=== PATIENT | female | born 1985 | race Caucasian/White ===

== ENCOUNTER → 2020-02-16 15:52 | Outpatient (BNVA) | payer BC, SELFPAY | PROVIDERS: Family Provider Family Medicine; Visit Provider Obstetrics & Gynecology | DX: Z12.4 Encounter for screening for malignant neoplasm of cervix (principal) | CPT/HCPCS: 88175 ==

== ENCOUNTER → 2021-09-30 12:29 | Outpatient (BNVA) | payer BC, SELFPAY | PROVIDERS: Family Provider Family Medicine; Visit Provider Nurse Practitioner | DX: R19.7 Diarrhea, unspecified (principal); R11.2 Nausea with vomiting, unspecified | CPT/HCPCS: 81000; 85025 ==

== ENCOUNTER → 2021-10-02 08:41 | Outpatient (BNVA) | payer BC, SELFPAY | PROVIDERS: Family Provider Family Medicine; Visit Provider Nurse Practitioner | DX: R19.7 Diarrhea, unspecified (principal) | CPT/HCPCS: 83630; 87506 ==

== ENCOUNTER → 2022-12-25 10:43 | Outpatient (BNVA) | payer OTHER, SELFPAY | PROVIDERS: Family Provider Family Medicine; Visit Provider Nurse Practitioner Family | DX: R39.9 Unspecified symptoms and signs involving the genitourinary system (principal) | CPT/HCPCS: 81000 ==

== ENCOUNTER → 2023-01-11 14:45 | Outpatient (BNVA) | payer OTHER, SELFPAY | PROVIDERS: Family Provider Family Medicine; Visit Provider Family Medicine | DX: D50.9 Iron deficiency anemia, unspecified (principal); N92.0 Excessive and frequent menstruation with regular cycle; Z01.419 Encounter for gynecological examination (general) (routine) without abnormal findings | CPT/HCPCS: 80053; 82728; 83550; 85025; 87624 ==

== ENCOUNTER 2023-01-18 15:25 | Outpatient (CLI) | payer OTHER, SELFPAY ==
--- NOTE | 2023-01-18 16:00 | CTR_ITS ---
PROCEDURE INFORMATION: Exam: CT Abdomen And Pelvis Without Contrast Exam date and time: 01/18/2023 3:53 PM Age: 37 years old Clinical indication: Other: Right flank pain; Prior surgery; Surgery date: 6+ months; Surgery type: Gb, ; Additional info: Right flank pain, hematuria TECHNIQUE: Imaging protocol: Computed tomography of the abdomen and pelvis without contrast. Radiation optimization: All CT scans at this facility use at least one of these dose optimization techniques: automated exposure control; mA and/or kV adjustment per patient size (includes targeted exams where dose is matched to clinical indication); or iterative reconstruction. REPORTING DATA: Count of CT and Cardiac NM exams in prior 12 months: This patient has received 0 known CTs and 0 known cardiac nuclear medicine studies in the 12 months prior to the current study. COMPARISON: US gall bladder [id number] 03/06/2017 9:45 PM RADIATION DOSE METRICS: Total DLP (mGy-cm): 774.1 FINDINGS: Liver: No mass. Gallbladder and bile ducts: Status post cholecystectomy. Pancreas: No ductal dilation. Spleen: No splenomegaly. Adrenal glands: Normal. No mass. Kidneys and ureters: Bilateral nephrolithiasis. No hydronephrosis. Evaluation for distal ureteral stone is limited at the level of the pelvis. Stomach and bowel: No obstruction. No mucosal thickening. Appendix: No evidence of appendicitis. Intraperitoneal space: No free air. No significant fluid collection. Vasculature: No abdominal aortic aneurysm. Lymph nodes: No enlarged lymph nodes. Urinary bladder: Unremarkable as visualized. Reproductive: Large uterine mass measuring 9 x 9.4 cm. Findings may represent a fibroid in can be further evaluated with pelvic ultrasound and MRI. The Bones/joints: Unremarkable. No acute fracture. Soft tissues: Unremarkable. CT/CT kidney stone [id number] IMPRESSION: 1. Bilateral nephrolithiasis. No hydronephrosis. Evaluation for distal ureteral stone is limited at the level of the pelvis. 2. Large uterine mass measuring 9 x 9.4 cm. Findings may represent a fibroid in can be further evaluated with nonemergent pelvic ultrasound and MRI.
== END 2023-01-18 15:26 | disposition home or self-care (01) ==
PROVIDERS: PCP Family Medicine; Visit Provider Family Medicine
DX: R10.9 Unspecified abdominal pain (principal); N20.0 Calculus of kidney; N85.8 Other specified noninflammatory disorders of uterus
CPT/HCPCS: 74176

== ENCOUNTER 2023-01-25 12:36 | Outpatient (CLI) | payer OTHER, SELFPAY ==
--- NOTE | 2023-01-25 13:00 | US_ITS ---
WS: [id number] US transvaginal [id number] HISTORY: menorrhagia COMPARISON: None available. Uterus: 10.4 cm x 8.7 cm x 7.6 cm. Uterus is enlarged and heterogeneous. Endometrium: There is a large central uterine mass obscuring the endometrium. This mass may be arisin g from the endometrium or the myometrium. There is no distinction between the 2. There is mixed echog enicity centrally. No cystic component. The central mass measures approximately 8.6 x 6.1 x 8.0 cm. T here is increased vascularity. Neither ovary is identified. No adnexal masses. No free fluid in the cul-de-sac. IMPRESSION: 1. Large, mildly vascular heterogeneous mass centered in the uterus. No distinguishable endometrium. This mass may be endometrial or myometrial in etiology. Recommend evaluation by SENIOR CONTRACTS MANAGER. Endometrial neop lasm versus fibroid within the differential. 2. Neither ovary identified.
== END 2023-01-25 12:37 | disposition home or self-care (01) ==
PROVIDERS: PCP Family Medicine; Visit Provider Family Medicine
DX: N92.0 Excessive and frequent menstruation with regular cycle (principal); N85.9 Noninflammatory disorder of uterus, unspecified
CPT/HCPCS: 76830

== ENCOUNTER → 2023-10-08 14:12 | Outpatient (BNVA) | payer OTHER, SELFPAY | PROVIDERS: PCP Family Medicine; Visit Provider Family Medicine | DX: R09.89 Other specified symptoms and signs involving the circulatory and respiratory systems (principal); Z13.6 Encounter for screening for cardiovascular disorders | CPT/HCPCS: 80053; 84443; 85025 ==

== ENCOUNTER 2023-12-06 11:08 | Outpatient (CLI) | payer OTHER, SELFPAY ==
[2023-12-06 11:27] VITALS: BMI 48.6
--- NOTE | 2023-12-06 11:28 | ECG_ITS ---
[facility] Test Date: 2023-12-06 Pat Name: Adriana Johnson Department: Room: Gender: Female Pantry Steward/Stewardess: : 1985 Requested By: Stephanie Kirkpatrick Order Number: [id number] Mast MD: Nicole Fajardo M.D. Interpretive Statements NAME OF STUDY: TREADMILL STRESS TEST INDICATION: Labile BP PROCEDURE: At the baseline, the patient's blood pressure was 115/85 with a heart rate of 83. The baseline electrocardiogram showed normal sinus rhythm with some nonspecific T wave changes.. The patient exercised for 9 minutes on a standard Dangelo protocol. Patient attained a maximum heart rate of 177 beats per minute(98% of the maximum predicted heart rate) with a blood pressure at the peak exercise of 160/101 mm Hg. The EKG at the peak exercise revealed nonspecific ST-T changes. Patient did not have any chest pain or any significant cardiac arrhythmias with the exercise During the recovery phase, there were no new changes. Blood pressure at the end of the recovery phase was 128/79 mm Hg with a heart rate of 99 per minute. CONCLUSION: 1. Nonspecific EKG changes with the treadmill exercise 2. No exercise-induced chest pain or cardiac arrhythmia 3. Fair exercise tolerance, attained a maximum of 10.2 METs 4. Hypertensive response to exercise Electronically Signed On 12-12-2023 22:37:15 CDT by Nicole Fajardo M.D. [email or web address]
[2023-12-06 12:06] VITALS: BP 126/64; PULSE 62
[2023-12-06 12:46] LABS: Alanine Aminotransferase 11 U/L (0-33); Albumin Level 4.2 g/dL (3.5-5.2); Alkaline Phosphatase 80 U/L (35-105); Aspartate Amino Transferase 13 U/L (0-32); Blood Urea Nitrogen 8 mg/dL (6-20); Calcium 9.1 mg/dL (8.5-10.5); Carbon Dioxide 19 mmol/L (22-29); Chloride 102 mmol/L (98-107); Chol HDL Ratio 3.23 mg/dL (0.0-4.40); Cholesterol 168 mg/dL (0-200); Creatinine Clr Calc Pharmacy 154.1066; Globulin 3.4 g/dL (1.3-4.6); Glomerular Filtration Rate 110.7 mL/min (90-130); Glucose 99 mg/dL (65-115); HDL Cholesterol 52 mg/dL (60-100); LDL Cholesterol Calculated 91 mg/dL (50-129); LDL HDL Ratio 1.75 RATIO (0.00-3.22); Osmolality Calculated 284 mOsm/kg (285-295); Sodium 138 mmol/L (136-145); Total Bilirubin 0.3 mg/dL (0.15-1.2); Total Protein 7.6 g/dL (6.6-8.7); Triglycerides 127 mg/dL (0-150)
== END 2023-12-06 11:09 | disposition home or self-care (01) ==
LOC: CDL 11:10
PROVIDERS: PCP Family Medicine; Visit Provider Family Medicine
DX: Z00.00 Encounter for general adult medical examination without abnormal findings (principal); R07.89 Other chest pain
CPT/HCPCS: 36415; 80053; 80061; 93017

== ENCOUNTER 2024-12-18 18:27 | Emergency (ER) | payer OTHER, SELFPAY ==
--- OUTSIDE RECORDS SUMMARY | 2024-12-17 10:00 | XMS_ITS | Encounter Summary ---
Author Organization [facility] Address [address] [place] [address] Care Team Providers Care Applications Trainer Name Role Phone Flip Becerra MD Primary Care Provider [phone] Reason for Referral * Radiology Services (Routine) - Open Specialty Diagnoses / Procedures Referred By Ijeoma llamas Referred To Contact Diagnoses Encounter for screening for malignant neoplasm of breast, unspecified screening modality Procedures MAMMO 3D NADEGE SCREEN BILATERAL MOBILE Claire Zaragoza FNP [address] [phone] Phone: tel: fax: [facility] Pre-Registration [place] CALL TO MAKE APPOINTMENT ONLY [address] [place] [address] Phone: tel: fax: Referral ID Status Reason Start Date Expiration Date Visits Re quested Visits Authorized [id number] Open 12/17/2024 01/17/2026 1 1 Reason for Visit * Reason Comments Kidney Stone Encounter Details Date Type Department Care Team (Late st Contact Info) Description 12/17/2024 10:00 AM CDT Telemed [facility] [address] [place] [phone] Claire Zaragoza FNP [address] [place] [address] Kidney stones (Primary Dx); Encounter for screening for malignant neoplasm of breast, unspecified screening modality Social History Tobacco Use Types Packs/Day Years Used Date Smoking Tobacco: Never Smokeless Tobacco: Never Alcohol Use Standard Drinks/Week Comments Never 0 (1 standard drink = 0.6 oz pur e alcohol) Comments No Sex and Gender Information Value Date Recorded Sex Assigned at Female 04/30/2024 11:27 AM REFRIGERATION PLANT OPERATOR Legal Sex Female 3:29 PM CDT Gender Identity Female 04/30/2024 11:27 AM REFRIGERATION PLANT OPERATOR Sexual Orientation Straight 04/30/2024 11 :27 AM REFRIGERATION PLANT OPERATOR documented as of this encounter Last Filed Vital Signs Vital Sign Reading Time Taken Comments Blood Pressure - - Pulse - - Temperature - - Respiratory Rate - - Oxygen Saturation - - Inhaled Oxygen Concentration - - Weight 97.5 kg (215 lb) 12/17/2024 10:15 AM CDT Height 157.5 cm (5' 2 ) 12/17/2024 10:15 AM CDT Body Mass Index 39.32 12/17/2024 10:15 AM CDT documented in this encounter Progress Notes * Claire Zaragoza FNP - 12/17/2024 11:42 AM CDT Patient's identity confirmed yes Patient gave verbal consent to have these services billed to their insurance and expressed understanding that co-insurance and deductible may apply: yes Patient was located at a place other than their home - work. This encounter was completed via two-way synchronous audio only communication. Video technology available to provider, but patient not capable of, or doesn't consent to, use of video. Time spent in discussion with patient: 10 minutes. {TIP For audio-only visits where the provider spent >5 but <10 min on phone with pt, [place] [phone]. HISTORY OF PRESENT ILLNESS bart Cowart 39 y.o. female presents with a Chief Complaint of Kidney Stone Patient complains of right flank pain for several days. Patient has a long standing history of kidney stones and is requesting a prescription for Flomax, as this is generally effective. She denies fevers or difficulty urinating. REVIEW OF SYSTEMS Review of Systems All other systems reviewed and are negative. Objective PHYSICAL EXAM Ht 5' 2 (1.575 m) Wt 97.5 kg (215 lb) LMP 03/28/2023 BMI 39.32 kg/m?? Physical Exam Neurological: General: No focal deficit present. Mental Status: She is alert and oriented to person, place, and time. Psychiatric: Mood and Affect: Mood normal. Behavior: Behavior normal. ASSESSMENT and PLAN: 1. Kidney stones (Primary) Instructed to increase fluid intake. Instructed to seek emergent care with inability to urinate or fever onset. Instructed in person visit with continued or worsening symptoms. - tamsulosin (Flomax) 0.4 mg capsule; Take 1 Capsule (0.4 mg) by mouth daily for 10 days. Dispense:10 Capsule; Refill: 1 - ondansetron (ZOFRAN ODT) 4 mg Tablet, Rapid Dissolve; Take 1 Tablet (4 mg) by mouth every 6 hoursas needed for Nausea/Emesis. Dissolve tablet on top of tongue, then swallow with saliva. Dispense: 15 Tablet; Refill: 0 2. Encounter for screening for malignant neoplasm of breast, unspecified screening modality - MAMMO 3D NADEGE SCREEN BILATERAL MOBILE; Future documented in this encounter Plan of Treatment Scheduled Orders Name Type Priority Associated Diagnoses Orde r Schedule MAMMO 3D NADEGE SCREEN BILATERAL MOBILE Imaging Routine Encounter for screening for malignant neoplasm of breast, unspecified screening modality 1 Occurrences starting 12/17/2024 until 06/19/2026 documented as of this encounter Visit Diagnoses Diagnosis Kidney stones- Primary Calculus of kidney Encounter for screening for malignant neoplasm of breast, unspecified screening modality documented in this encounter Care Teams Applications Trainer Relationship Specialty Start Date End Date Flip Becerra MD [address] [place] [phone] PCP - General Family Practice 12/17/24 documented as of this encounter
--- OUTSIDE RECORDS SUMMARY | 2024-12-18 08:40 | XMS_ITS | Encounter Summary ---
Author Organization [facility] Address [address] [place] [address] Care Team Providers Care Blueprint Duplicator Name Role Phone Flip Becerra MD Primary Care Provider [phone] Reason for Visit * Reason Comments Kidney Stone Symptoms started Meera rsday morning, Progressively worsening Encounter Details Date Type Department Care Team (Late st Contact Info) Description 12/18/2024 8:40 AM CDT Office Visit [facility] [address] [phone] Claire Zaragoza, [facility] [address] [phone] Flank pain (Primary Dx) Social History Tobacco Use Types Packs/Day Years Used Date Smoking Tobacco: Never Smokeless Tobacco: Never Alcohol Use Standard Drinks/Week Comments Never 0 (1 standard drink = 0.6 oz pur e alcohol) Comments No Sex and Gender Information Value Date Recorded Sex Assigned at Female 04/30/2024 11:27 AM BIOCHEMIST Legal Sex Female 3:29 PM CDT Gender Identity Female 04/30/2024 11:27 AM BIOCHEMIST Sexual Orientation Straight 04/30/2024 11 :27 AM BIOCHEMIST documented as of this encounter Last Filed Vital Signs Vital Sign Reading Time Taken Comments Blood Pressure 132/76 12/18/2024 8:56 AM CDT Pulse 128 12/18/2024 8:56 AM CDT Temperature 37.4 C (99.3 F) 12/18/2024 8:56 AM CDT Respiratory Rate 20 12/18/2024 8:56 AM CDT Oxygen Saturation 96% 12/18/2024 8:56 AM CDT Inhaled Oxygen Concentration - - Weight 101.2 kg (223 lb) 12/18/2024 8:56 AM CDT Height 157.5 cm (5' 2 ) 12/18/2024 8:56 AM CDT Body Mass Index 40.79 12/18/2024 8:56 AM CDT documented in this encounter Progress Notes * Mila Claire Miller, INVESTMENT ADVISOR - 12/18/2024 11:21 AM CDT HISTORY OF PRESENT ILLNESS Adriana Johnson, a 39 y.o. female presents with a Chief Complaint of Kidney Stone (Symptoms started Th morning, Progressively worsening) Patient presents to clinic with right sided flank pain since yesterday. She reports she is urinating with some blood. She reports a history of kidney stones and reports similar symptoms. She reports vomiting and a fever of 102 this morning. REVIEW OF SYSTEMS Review of Systems All other systems reviewed and are negative. Objective PHYSICAL EXAM BP 132/76 Pulse (!) 128 Temp 99.3 ??F (37.4 ??C) (Temporal) Resp 20 Ht 5' 2 (1.575 m) Wt101.2 kg (223 lb) LMP 03/28/2023 SpO2 96% BMI 40.79 kg/m?? Physical Exam Constitutional: Appearance: She is ill-appearing and diaphoretic. HENT: Mouth/Throat: Mouth: Mucous membranes are moist. Eyes: Pupils: Pupils are equal, round, and reactive to light. Cardiovascular: Rate and Rhythm: Normal rate and regular rhythm. Pulmonary: Effort: Pulmonary effort is normal. Breath sounds: Normal breath sounds. Abdominal: Tenderness: There is right CVA tenderness. Skin: General: Skin is warm. Capillary Refill: Capillary refill takes less than 2 seconds. Neurological: General: No focal deficit present. Mental Status: She is alert and oriented to person, place, and time. Psychiatric: Mood and Affect: Mood normal. ASSESSMENT and PLAN: 1. Flank pain (Primary) Prescription for pain medication sent via Dr. Glover. Strict ER precautions with new or worsening symptoms. Encouraged increasing fluid intake, Flomax as prescribed. - ketorolac (TORADOL) injection 30 mg - prochlorperazine (COMPAZINE) injection 10 mg - XR ABDOMEN 1 VW; Future documented in this encounter Plan of Treatment Not on file documented as of this encounter Results * XR ABDOMEN 1 VW (12/18/2024 9:24 AM CDT) Anatomical Region Laterality Modality Abdomen Computed Radiogr aphy 12/18/2024 9:25 AM CDT Impressions 12/18/2024 10:23 AM CDT IMPRESSION: 1. The current study is limited by motion. 2. Possible calculus near the right renal pelvis. Narrative 12/18/2024 10:23 AM CDT EXAM: XR ABDOMEN 1 VW DATE/TIME OF EXAM: 12/18/2024 9:24 AM REASON FOR STUDY: See Diagnosis DIAGNOSIS: Flank pain COMPARISON: None FINDINGS: The current study is limited by motion artifact. Sensitivity for calculi is very limited. Possible right renal calculus projecting to the right of the T12 vertebra. Nonspecific focal opacities in the pelvis indeterminate for calcifications. Bowel gas pattern is nonobstructive. Procedure Note Dhiraj Lua MD - 12/18/2024 EXAM: XR ABDOMEN 1 VW DATE/TIME OF EXAM: 12/18/2024 9:24 AM REASON FOR STUDY: See Diagnosis DIAGNOSIS: Flank pain COMPARISON: None FINDINGS: The current study is limited by motion artifact. Sensitivity for calculi is very limited. Possible right renal calculus projecting to the right of the T12 vertebra. Nonspecific focal opacities in the pelvis indeterminate for calcifications. Bowel gas pattern is nonobstructive. IMPRESSION: 1. The current study is limited by motion. 2. Possible calculus near the right renal pelvis. Claire [facility] BLES Final Result documented in this encounter Visit Diagnoses Diagnosis Flank pain- Primary Abdominal pain, unspecified site Flank pain Abdominal pain, unspecified site documented in this encounter Administered Medications Inactive Administered Medications - up to 3 most recent administrations Medication Order MAR Action Action Date Dose Rate Site ketorolac (TORADOL) injection 30 mg 30 mg, IM, ONE TIME ONLY, 1 dose, On Sat12/18/24 at 0915, RoutineIndications:Flank pain Given 12/18/2024 9:35 AM CDT 30 mg Ventrogluteal, Right prochlorperazine (COMPAZINE) injection 10 mg 10 mg, IM, ONE TIME ONLY, 1 dose, On Sat12/18/24 at 0915, RoutineIndications:Flank pain Given 12/18/2024 9:36 AM CDT 10 mg Ventrogluteal, Left documented in this encounter Care Teams Blueprint Duplicator Relationship Specialty Start Date End Date Flip Becerra MD [address] [place] [phone] PCP - General Family Practice 12/17/24 documented as of this encounter
--- OUTSIDE RECORDS SUMMARY | 2024-12-18 09:15 | XMS_ITS | Encounter Summary ---
Author Organization [facility] Address [address] [place] [address] Care Team Providers Care Limehouse Worker Name Role Phone Flip Becerra MD Primary Care Provider [phone] Reason for Visit * Reason Comments X-Ray Only Encounter Details Date Type Department Care Team (Late st Contact Info) Description 12/18/2024 9:15 AM CDT Ancillary Procedure [facility] [address] [place] [phone] [facility] [address] [phone] Flank pain Social History Tobacco Use Types Packs/Day Years Used Date Smoking Tobacco: Never Smokeless Tobacco: Never Alcohol Use Standard Drinks/Week Comments Never 0 (1 standard drink = 0.6 oz pur e alcohol) Comments No Sex and Gender Information Value Date Recorded Sex Assigned at Female 04/30/2024 11:27 AM ENGINE OILER Legal Sex Female 3:29 PM CDT Gender Identity Female 04/30/2024 11:27 AM ENGINE OILER Sexual Orientation Straight 04/30/2024 11 :27 AM ENGINE OILER documented as of this encounter Plan of Treatment Not on file documented as of this encounter Procedures Procedure Name Priority Date/Time Associated Diagnosis Comments XR ABDOMEN 1 VW Routine 12/18/2024 9:24 AM CDT Flank pain documented in this encounter Results * XR ABDOMEN 1 [...] calculus near the right renal pelvis. Claire Zaragoza CONCRETE ROD BUSTER [facility] ORDERA BLES Final Result documented in this encounter Visit Diagnoses Diagnosis Flank pain Abdominal pain, unspecified site documented in this encounter Care Teams Limehouse Worker Relationship Specialty Start Date End Date Flip Becerra MD [address] [place] [phone] PCP - General Family Practice 12/17/24 documented as of this encounter
--- OUTSIDE RECORDS SUMMARY | 2024-12-18 18:33 | XMS_ITS | Clinical Summary ---
Author Organization [facility] Address [address] [phone] Care Team Providers Care Charhouse Worker Name Role Phone Flip Becerra MD Primary Care Provider [phone] Allergies Active Allergy Reactions Criticality Noted Date Comments Sulfa (Sulfonamide Antibiotics) Shortness of Breath/Wheezing High 09/30/2021 Medications cetirizine (ZyrTEC) 10 mg tablet Take 10 mg by mouth. 3 Active nystatin (MYCOSTATIN) 100,000 unit/gram Ointment Apply to affected area 2 times daily. 30 Gram 3 Active Additional Information Patient not taking.Reported on 12/18/2024 tamsulosin (Flomax) 0.4 mg capsuleIndicat ions:Kidney stones Take 1 Capsule (0.4 mg) by mouth daily for 10 days. 10 Capsule 1 5 12/28/19 25 Active ondansetron (ZOFRAN ODT) 4 mg Tablet, Rapid DissolveIndica tions:Kidney stones Take 1 Tablet (4 mg) by mouth every 6 hours as needed for Nausea/Emesis. Dissolve tablet on top of tongue, then swallow with saliva. 15 Tablet 5 Active Additional Information Patient not taking.Reported on 12/18/2024 oxyCODONE-acet aminophen (PERCOCET) 5-325 mg tabletIndicati ons:Kidney stones Take 1 Tablet by mouth every 4 hours as needed for Pain, Moderate. Max Daily Amount: 6 Tablets 15 Tablet Active ondansetron (ZOFRAN ODT) 4 mg Tablet, Rapid Dissolve Take 1 Tablet (4 mg) by mouth every 6 hours as needed for Nausea/Emesis. Dissolve tablet on top of tongue, then swallow with saliva. 15 Tablet 3 12/18/19 25 Discontin ued([facility]) Hospital, Clinic, or Other Facility Administered Medication Ordered Dose Route Frequency Start Date End Date Status ketorolac (TORADOL) injection 30 mgIndications:Flank pain 30 mg IM ONE TIME ONLY 12/18/2024 12/18/2024 Ended prochlorperazine (COMPAZINE) injection 10 mgIndications:Flank pain 10 mg IM ONE TIME ONLY 12/18/2024 12/18/2024 Ended Active Problems Problem Noted Date Diagnosed Date History of 2 sections 05/01/2023 Uterine mass 04/09/2023 Enlarged uterus 03/06/2023 Uterine leiomyoma 03/06/2023 Menorrhagia with irregular cycle 03/06/2023 History of x 2 03/06/2023 Pelvic adhesions 03/06/2023 Encounters Date Type Department Care Team Description 12/18/2024 9:15 AM CDT Ancillary Procedure [address] [phone] Claire Zaragoza FNP Flank pain 12/18/2024 8:40 AM CDT Office Visit [address] [phone] Claire Zaragoza FNP Flank pain (Primary Dx) 12/18/2024 Results Follow-Up [address] [phone] Claire Zaragoza FNP XR ABDOMEN 1 VW 12/18/[address] [phone] Claire Zaragoza FNP Kidney stones (Primary Dx) 12/17/2024 10:00 AM CDT Telemed [address] [phone] Claire Zaragoza, SCREEN PRINTING PASTER Kidney stones (Primary Dx); Encounter for screening for malignant neoplasm of breast, unspecified screening modality from Last 3 Months Social History Tobacco Use Types Packs/Day Years Used Date Smoking Tobacco: Never Smokeless Tobacco: Never Tobacco Cessation:Counseling Given: Not Answered Alcohol Use Standard Drinks/Week Comments Never 0 (1 standard drink = 0.6 oz pur e alcohol) Comments No Sex and Gender Information Value Date Recorded Sex Assigned at Female 04/30/2024 11:27 AM AIRLINE PILOT/FIRST OFFICER Legal Sex Female 3:29 PM CDT Gender Identity Female 04/30/2024 11:27 AM AIRLINE PILOT/FIRST OFFICER Sexual Orientation Straight 04/30/2024 11 :27 AM AIRLINE PILOT/FIRST OFFICER Last Filed Vital Signs Vital Sign Reading [...] Mass Index 40.79 12/18/2024 8:56 AM CDT Plan of Treatment Health Maintenance Due Date Last Done Comments Pre-Diabetes and Diabetes Screening 1983 HPV VACCINES (1 - 3-dose series) 1998 DTAP/TDAP/TD VACCINES (1 - Tdap) 2002 HEPATITIS B VACCINES (1 of 3 - 19+ 3-dose series) 05/27 BREAST CANCER SCREENING 2023 Preventative Visit- Commercial 05/27/2024 INFLUENZA VACCINE (#1) 2024 Procedures Procedure Name Priority Date/Time Associated Diagnosis Comments XR ABDOMEN 1 VW Routine 12/18/2024 9:24 AM CDT Flank pain from Last 3 Months Results * XR ABDOMEN 1 VW (12/18/2024 [...] calculus near the right renal pelvis. Claire [facility] ORDER[facility] BLES Final Result from Last 3 Months Insurance [address] [place] [address] [place] [employer] Advance Directives For more information, please contact: [phone] * Full Code (Latest Code Status on File) Date Activated Date Inactivated Comments 05/01/2023 3:23 PM 05/02/2023 1:24 PM * Full Code Date Activated Date Inactivated Comments 05/01/2023 9:58 AM 05/01/2023 3:23 PM * Full Code Date Activated Date Inactivated Comments 05/01/2023 7:44 AM 05/01/2023 9:57 AM Care Teams Charhouse Worker Relationship Specialty Start Date End Date Flip Becerra MD [address] [place] [phone] PCP - General Family Practice 12/17/24
--- OUTSIDE RECORDS SUMMARY | 2024-12-18 18:33 | XMS_ITS | Encounter Summary ---
Author Organization [facility] Address [address] [place] [address] Care Team Providers Care Middleware Solutions Architect Name Role Phone Flip Becerra MD Primary Care Provider [phone] Reason for Visit * Reason Onset Date Comments Imaging Results 12/18/2024 Encounter Details Date Type Department Care Team (Late st Contact Info) Description 12/18/2024 Results Follow-Up [facility] Medicine [place] [address] [place] [phone] [facility] [address] [phone] XR ABDOMEN 1 VW Social History Tobacco Use Types Packs/Day Years Used Date Smoking Tobacco: Never Smokeless Tobacco: Never Alcohol Use Standard Drinks/Week Comments Never 0 (1 standard drink = 0.6 oz pur e alcohol) Comments No Sex and Gender Information Value Date Recorded Sex Assigned at Female 04/30/2024 11:27 AM NATURAL GAS TECHNICIAN Legal Sex Female 3:29 PM CDT Gender Identity Female 04/30/2024 11:27 AM NATURAL GAS TECHNICIAN Sexual Orientation Straight 04/30/2024 11 :27 AM NATURAL GAS TECHNICIAN documented as of this encounter Miscellaneous Notes * Telephone Encounter - Lynsey Wilson LPN - 12/18/2024 11:08 AM CDT 12/18/2024 11:08 AM Called and notified patient of results. Voiced gisell. Lynsey CANTRELL * Telephone Encounter - Lynsey Wilson LPN - 12/18/2024 11:07 AM CDT ----- Message from Cliare Zaragoza sent at 12/18/2024 11:05 AM CDT ----- IMPRESSION: 1. The current study is limited by motion. 2. Possible calculus near the right renal pelvis. ----- Message ----- From: [facility] Incoming Radiology Results Sent: 12/18/2024 10:23 AM CDT To: DEMETRIUS Starkey * Result Encounter Note - Claire Zaragoza FNP - 12/18/2024 11:05 AM CDT IMPRESSION: 1. The current study is limited by motion. 2. Possible calculus near the right renal pelvis. documented in this encounter Plan of Treatment Not on file documented as of this encounter Visit Diagnoses Not on filedocumented in this encounter Care Teams Middleware Solutions Architect Relationship Specialty Start Date End Date Flip Becerra MD [address] [place] [phone] PCP - General Family Practice 12/17/24 documented as of this encounter
--- OUTSIDE RECORDS SUMMARY | 2024-12-18 18:33 | XMS_ITS | Encounter Summary ---
Author Organization [facility] Address 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 [employer] Name Role Phone Flip Becerra MD Primary Care Provider [phone] Reason for Visit * Reason Onset Date Comments Medication Refill 12/18/2024 Encounter Details Date Type Department Care Team (Late st Contact Info) Description 12/18/2024 Refill [facility] [address] [phone] [facility] [address] [phone] Kidney stones (Primary Dx) Social History Tobacco Use Types Packs/Day Years Used Date Smoking Tobacco: Never Smokeless Tobacco: Never Alcohol Use Standard Drinks/Week Comments Never 0 (1 standard drink = 0.6 oz pur e alcohol) Comments No Sex and Gender Information Value Date Recorded Sex Assigned at Female 04/30/2024 11:27 AM TECHNICAL AID Legal Sex Female 3:29 PM CDT Gender Identity Female 04/30/2024 11:27 AM TECHNICAL AID Sexual Orientation Straight 04/30/2024 11 :27 AM TECHNICAL AID documented as of this encounter Plan of Treatment Not on file documented as of this encounter Visit Diagnoses Diagnosis Kidney stones- Primary Calculus of kidney documented in this encounter Care Teams Farmworker [employer] Relationship Specialty Start Date End Date Flip Becerra MD [address] [place] [phone] PCP - General Family Practice 12/17/24 documented as of this encounter
[2024-12-18 18:56] VITALS: BP 93/56; PULSE 112; RESP 16; TEMP 37.3; O2SAT 98; BMI 38.9
[2024-12-18 19:33] LABS: Hematocrit 42.2 % (36-47); Hemoglobin 13.90 g/dL (11.27-16.99); Mean Corpuscular HGB Conc 32.9 g/dL (30-55); Mean Corpuscular Hemoglobin 30.5 pg (27-33); Mean Corpuscular Volume 92.5 fl (85-98); Nucleated Red Blood Cells % 0 %; Platelet Count 233 10^3/cmm (157-399); Red Blood Count 4.56 10^6/uL (3.85-5.65); White Blood Count 16.88 10^3/uL (3.29-11.43)
[2024-12-18 19:46] LABS: HCG, Serum Qual Negative (Negative)
[2024-12-18 19:56] LABS: Alanine Aminotransferase 10 U/L (0-33); Albumin Level 3.8 g/dL (3.5-5.2); Alkaline Phosphatase 71 U/L (35-105); Anion Gap 18.6 (5-19); Aspartate Amino Transferase 13 U/L (0-32); Blood Urea Nitrogen 12 mg/dL (6-20); Calcium 8.7 mg/dL (8.5-10.5); Carbon Dioxide 22 mmol/L (22-29); Chloride 101 mmol/L (98-107); Creatinine Clr Calc Pharmacy 104.2467; Globulin 3.0 g/dL (1.3-4.6); Glucose 142 mg/dL (65-115); Lipase 14 U/L (13-60); Osmolality Calculated 288 mOsm/kg (285-295); Potassium 3.6 mmol/L (3.5-5.1); Sodium 138 mmol/L (136-145); Total Protein 6.8 g/dL (6.6-8.7)
[2024-12-18 20:01] LABS: Lactic Sepsis W/Reflex 1.5 mmol/L (0.5-2.2)
[2024-12-18 21:17] VITALS: BP 110/74; PULSE 104; RESP 16; O2SAT 96
--- NOTE | 2024-12-18 21:24 | CTR_ITS ---
PROCEDURE INFORMATION: Exam: CT Abdomen And Pelvis Without Contrast Exam date and time: 12/18/2024 9:50 PM Age: 39 years old Clinical indication: Abdominal pain; Prior surgery; Surgery date: 6+ months; Surgery type: Gb. Partial hysterectomy. Csection; C/O left flank pain with fever TECHNIQUE: Imaging protocol: Computed tomography of the abdomen and pelvis without contrast. Radiation optimization: All CT scans at this facility use at least one of these dose optimization techniques: automated exposure control; mA and/or kV adjustment per patient size (includes targeted exams where dose is matched to clinical indication); or iterative reconstruction. COMPARISON: CT kidney stone [id number] 01/18/2023 3:53 PM RADIATION DOSE METRICS: Total DLP (mGy-cm): 1006.1 FINDINGS: Liver: The liver is enlarged, measuring 19.3 cm craniocaudal. Gallbladder and biliary ducts: Status post cholecystectomy. No biliary ductal dilatation. Pancreas: Normal. No ductal dilation. Spleen: Borderline splenomegaly. Adrenal glands: Normal. No mass. Kidneys and ureters: 4 mm nonobstructing calculus in a left lower pole calyx. A few 2-3 mm calculi are seen in the upper pole of the left kidney. Mild left hydroureteronephrosis. Asymmetric left perinephric fat stranding. 5 mm calculus in the distal left ureter at the level of the ureterovesicular junction. Stomach and bowel: Unremarkable. No obstruction. No mucosal thickening. Appendix: No evidence of appendicitis. Intraperitoneal space: Unremarkable. No free air. No significant fluid collection. Vasculature: Unremarkable. No abdominal aortic aneurysm. Lymph nodes: Unremarkable. No enlarged lymph nodes. Urinary bladder: Unremarkable as visualized. Reproductive: Status post hysterectomy. No suspicious adnexal mass. Bones/joints: Mild leftward curvature of the lumbar spine. No acute osseous findings. Soft tissues: Unremarkable. CT/CT kidney stone [id number] IMPRESSION: 5 mm obstructing calculus at the level of the left ureterovesicular junction with mild upstream hydroureteronephrosis. Asymmetric left perinephric fat stranding is likely a result of the obstruction, though underlying infection/inflammation is difficult to exclude.
--- NOTE | 2024-12-18 21:24 | W.ED.BACK ---
HPI - Back Pain/Injury General: Chief Complaint: Back Pain/Injury Stated Complaint: kidney pain Time Seen by Provider: 12/18/24 21:14 History of Present Illness: Healthy 39-year-old female complaining of bilateral flank pain left greater than right, essentially for the last 2 days. She has nausea. She says she has not wanted to eat. Urine has been clear, but just now turned dark. She has felt feverish, and had a temperature up to 101 today. She has a history of kidney stones. She has a history of a hysterectomy. Related Data Home Medications ?Medication ?Instructions ?Recorded ?Confirmed cetirizine 10 mg tablet (Zyrtec) 10 mg PO DAILY PRN 12/25/22 01/02/24 multivitamin (Daily Multi-Vitamin 1 tab PO DAILY 12/25/22 01/02/24 tablet) Previous Rx's ?Medication ?Instructions ?Recorded clonidine HCl 0.1 mg tablet 0.1 mg PO TID PRN BP > 160/90 #30 10/08/23 tabs meloxicam 15 mg tablet See Rx Instructions .Route 12/02/23 .COMPLEX #30 tabs Allergies Allergy/AdvReac Type Severity Reaction Status Date / Time Sulfa (Sulfonamide Allergy ALGY-Difficulty Verified 12/18/24 18:57 Antibiotics) Breathing [facility] ED PFSH: Medical History Establishing care with new doctor, encounter for Uterine mass fibroma Cecilia ACKERMAN No pertinent past medical history Surgical History S/P partial hysterectomy uterine Fibroma, ~03/2023 Cecilia ACKERMAN S/P cholecystectomy Lap H/O section x2 Family History Grandfather Hyperlipidemia maternal Mother Hyperlipidemia Father Hypertension Denies family history of Colon cancer Ovarian cancer Diabetes CAD (coronary artery disease) Clotting disorder Breast cancer Anesthesia complication Bleeding disorder Uterine cancer Thyroid disease Stroke Social History Smoking and tobacco/nicotine status: never used tobacco/nicotine Alcohol intake: current Alcohol intake frequency: holidays/special occasions only Alcohol type: wine and hard liquor Substance/Drug Use: never Lives independently: Yes Household members: spouse Current gender identity: Female Physical Exam Const: COMMON NORMALS: no acute distress GENERAL APPEARANCE: cooperative; not ill appearing and not frail appearing HENMT: COMMON NORMALS: normocephalic, atraumatic and Normal external nose present HEAD & SCALP: normocephalic and atraumatic FACE & SINUS: normal facial exam and face symmetric NOSE: Normal external nose present Eye: COMMON NORMALS: Equal, round and reactive pupils present and EOMs intact bilaterally PUPIL: Yes Equal, round and reactive pupils present Neck/C-Spine: GENERAL: Yes trachea midline Chest: CHEST: Yes Symmetrical chest wall rise Resp: COMMON NORMALS: normal respiratory effort, No retractions, No use of accessory muscles and clear to auscultation bilaterally AUSCULTATION: clear to auscultation bilaterally Cardio: COMMON NORMALS: regular rate and regular rhythm RATE: regular rate RHYTHM: regular rhythm GI: COMMON NORMALS: Normal to inspection, nondistended, normoactive bowel sounds present : BLADDER/KIDNEY EXAM: Yes CVA tenderness bilateral Back/Pelvis: GENERAL BACK: Yes CVA tenderness Extremity: COMMON NORMALS: no pedal edema Neuro: AMADA COMA SCALE: document GCS findings Centre coma scale eye opening: Spontaneous Centre coma scale verbal response: Orientated Amada coma scale motor response: Obey commands Centre coma scale total score: 15 SENSORY EXAM: Yes extremities (intact) Psych: COMMON NORMALS: speech normal SPEECH: Yes normal speech Skin: COMMON NORMALS: no rashes or lesions noted GENERAL SKIN EXAM: no rashes or lesions noted Course Vital Signs: Vital signs: Vital Signs Temperature 99.2 F 12/18/24 18:56 Pulse Rate 116 H 12/19/24 01:11 Respiratory Rate 16 12/19/24 01:11 Blood Pressure 124/84 12/19/24 01:11 Pulse Oximetry 99 12/19/24 01:11 Oxygen Delivery Me thod Room Air 12/19/24 01:11 MDM - Back Pain/Injury Medical Decision Making Patient is a temperature here of 99.2. Was 101 at home. His white blood cell count is 17. 91% neutrophils. Other laboratory not remarkable. Urinalysis does show greater than 100 white blood cells, 4+ bacteria, 3+ leukocyte esterase. CT shows 5 mm obstructing calculus at the level of the UVJ on the left. She is tachycardic. She is mildly hypotensive on arrival. She is given fluid bolus, Rocephin here. With obstruction, pyelonephritis, she will require urology consultation. We do not have urology services at this facility. Looking for her a bed in an appropriate facility currently. Spoke with Dr. Kennedy in [place] who is graciously accepted the patient. Awaiting a bed assignment. Labs 12/18/24 19:23 12/18/24 19:23 Radiology Impressions Abdomen/Pelvis CT 12/18/24 21:24 IMPRESSION: 5 mm obstructing calculus at the level of the left ureterovesicular junction with mild upstream hydroureteronephrosis. Asymmetric left perinephric fat stranding is likely a result of the obstruction, though underlying infection/inflammation is difficult to exclude. Laboratory Results WBC 16.88 10^3/uL (3.29-11.43) H 12/18/24 19:23 RBC 4.56 10^6/uL (3.85-5.65) 12/18/24 19:23 Hgb 13.90 g/dL (11.27-16.99) 12/18/24 19:23 Hct 42.2 % (36-47) 12/18/24 19:23 MCV 92.5 fl (85-98) 12/18/24 19:23 MCH 30.5 pg (27-33) 12/18/24 19:23 MCHC 32.9 g/dL (30-55) 12/18/24 19:23 RDW 12.6 % (12.1-15.1) 12/18/24 19:23 Plt Count 233 10^3/cmm (157-399) 12/18/24 19:23 MPV 9.5 fL (7.4-10.4) 12/18/24 19:23 Neut % (Auto) 91.1 % 12/18/24 19:23 Lymph % (Auto) 2.4 % 12/18/24 19:23 Sac % (Auto) 5.6 % 12/18/24 19:23 Eos % (Auto) 0.1 % 12/18/24 19:23 Baso % (Auto) 0.3 % 12/18/24 19:23 Neut # (Auto) 15.39 10^3/uL (1.8-7.7) H 12/18/24 19:23 Lymph # (Auto) 0.4 10^3/uL (0.8-4.8) L 12/18/24 19:23 Sac # (Auto) 0.9 10^3/uL (0.2-0.9) 12/18/24 19:23 Eos # (Auto) 0.0 10^3/uL (0.0-0.8) 12/18/24 19:23 Baso # (Auto) 0.1 10^3/uL (0.0-0.1) 12/18/24 19:23 Nucleated RBC % (auto) 0 % 12/18/24 19:23 Nucleated RBCs # 0.0 /100WBC 12/18/24 19:23 Sodium 138 mmol/L (136-145) 12/18/24 19:23 Potassium 3.6 mmol/L (3.5-5.1) 12/18/24 19:23 Chloride 101 mmol/L (98-107) 12/18/24 19:23 Carbon Dioxide 22 mmol/L (22-29) 12/18/24 19:23 Anion Gap 18.6 (5-19) 12/18/24 19:23 BUN 12 mg/dL (6-20) 12/18/24 19:23 Creatinine 0.8 mg/dL (0.5-0.9) 12/18/24 19:23 GFR Calculation 79.0 mL/min (90-130) L 12/18/24 19:23 Glucose 142 mg/dL (65-115) H 12/18/24 19:23 Calculated Osmolality 288 mOsm/kg (285-295) 12/18/24 19:23 Lactic Acid 1.5 mmol/L (0.5-2.2) 12/18/24 19:23 Calcium 8.7 mg/dL (8.5-10.5) 12/18/24 19:23 Total Bilirubin 1.0 mg/dL (0.15-1.2) 12/18/24 19:23 AST 13 U/L (0-32) 12/18/24 19:23 ALT 10 U/L (0-33) 12/18/24 19:23 Alkaline Phosphatase 71 U/L (35-105) 12/18/24 19:23 Total Protein 6.8 g/dL (6.6-8.7) 12/18/24 19:23 Albumin 3.8 g/dL (3.5-5.2) 12/18/24 19:23 Globulin 3.0 g/dL (1.3-4.6) 12/18/24 19:23 Lipase 14 U/L (13-60) 12/18/24 19:23 HCG, Qual Negative (Negative) 12/18/24 19:23 Urine Color [place] (Yellow) A 12/18/24 21:15 Urine Appearance Turbid (CLEAR) A 12/18/24 21:15 Urine pH 5.0 (5-7) 12/18/24 21:15 Ur Specific Elizabeth 1.021 (1.005-1.030) 12/18/24 21:15 Urine Protein 2+ (Negative) A 12/18/24 21:15 Urine Glucose (UA) Negative (Normal) 12/18/24 21:15 Urine Ketones Trace (Negative) 12/18/24 21:15 Urine Blood 3+ (Negative) A 12/18/24 21:15 Urine Nitrate Negative (Negative) 12/18/24 21:15 Urine Bilirubin 1+ (Negative) H 12/18/24 21:15 Urine Urobilinogen 1.0 mg/dL (Negative) 12/18/24 21:15 Ur Leukocyte Esterase 3+ (Negative) A 12/18/24 21:15 Urine RBC 6-10 /hpf (0-2) 12/18/24 21:15 Urine WBC >100 /hpf (0-5) H 12/18/24 21:15 Ur Squamous Epith Cells 11-20 /hpf (0-5) H 12/18/24 21:15 Amorphous Sediment Not Reportable 12/18/24 21:15 Urine Bacteria 4+ /hpf (NONE) H 12/18/24 21:15 Hyaline Casts 18.50 /lpf 12/18/24 21:15 All radiology interpretation(s) finalized by discharge Discharge Plan Discharge Patient Disposition: Xfer Short-Term Hosp Clinical Impression: Pyelonephritis, Ureterolithiasis Condition: Fair Referrals: Stephanie Kirkpatrick DO [Primary Care Provider, [facility]] Print Language: Luxembourger Coding Level of Care Code ED Survey Chief for Yuvalg Alvaro
[2024-12-18 21:37] LABS: Glucose Urine UA Negative (Normal); Nitrate Urine Negative (Negative); Specific Gravity, Urine 1.021 (1.005-1.030)
[2024-12-18 21:42] LABS: Add Urine Microscopic? YES
[2024-12-18] MEDS: ondansetron 2 mg/ML SDV 2 mL 4 MG IVP (21:43)
[2024-12-18 21:50] LABS: UA Slide Review UA Slide Review Perf
[2024-12-18] MEDS: cefTRIAXone 1,000 mg SDV 1000 MG IVP (22:42)
[2024-12-19] MEDS: ondansetron 2 mg/ML SDV 2 mL 4 MG IVP (00:37)
[2024-12-19] MEDS: morphine 4 mg/mL SDV 1 mL IVP (00:37)
[2024-12-19 00:38] VITALS: BP 126/84; PULSE 110; RESP 18; O2SAT 95
[2024-12-19 01:11] VITALS: BP 124/84; PULSE 116; RESP 16; O2SAT 99
== END 2024-12-19 02:31 | disposition short-term general hospital (02) ==
PROVIDERS: Physician Assistant; Emergency Provider Emergency Medicine; PCP Family Medicine
DX: N12 Tubulo-interstitial nephritis, not specified as acute or chronic (principal); N20.1 Calculus of ureter
CPT/HCPCS: 36415; 74176; 80053; 81001; 83605; 83690; 84703; 85025; 87077; 87086; 87186; 96361; 96374; 96375; 96376; 99285; J0696; J1885; J2270; J2405; J7030